=== PATIENT | male | born 1935 | race Caucasian/White ===

== ENCOUNTER → 2016-10-14 | Day surgery (SDC) | payer MEDICARE, BC ==
[~2016-10-14] MED LIST: ASPI81TA17 PO; BUPIVACAINE/EPINEPHRINE 0.5% PF 30 ML VIAL ONE; FLON0.053; IOHEXOL 180 MG/ML 20 ML VIAL (for RAD DIAG) ONE; KETOROLAC TROMETHAMINE 30 MG/ML (IVP) VIAL IV PUSH ONE; KRIL300C3 PO; LACTATED RINGER'S 1000 ML INJ 1,000 ML ONE; LIDOCAINE 1.5%/EPINEPHrine 1:200,000 PF SOLN 30 ML AMP ONE; MIDAZOLAM HCL 2 MG/2 ML VIAL ONE; PREV15CA PO; PROP20TA3 PO; PROPOFOL 200 MG/20 ML AMP IV ONE; SODIUM CHLORIDE 0.9% INJ 10 ML ONE; TAB-TAB PO; VITA400C70 PO; VITA500015 PO; ceFAZolin 2 GM PREMIX 50 ML ONE
--- NOTE | 2016-10-14 13:22 | TN ---
cc: ANEUDY CORONEL DATE OF SURGERY 10/14/2016 PREOPERATIVE DIAGNOSIS Compression fracture of L3, acute. POSTOPERATIVE DIAGNOSIS Compression fracture of L3, acute. PROCEDURE Kyphoplasty of L3 and placement of a bone cement spacer. SURGEON Aneudy Coronel MD ANESTHESIA TIVA ESTIMATED BLOOD LOSS Minimal INDICATION This is a 81-year-old white male who three to four weeks ago sustained a fracture after an injury to his spine. Investigative studies shows evidence of a compression fracture at the L3 level and an MRI scan confirms that is a recent fracture. The patient has had a previous kyphoplasty at L2 done years ago and did well after the treatment of that. The patient presents for surgical treatment. PROCEDURE The patient was brought to the operating room and given limited sedation, rolled to prone position on a radiolucent table. All pressure points were protected. The back was scrubbed with alcohol followed by Hibiclens, followed by Chloraprep and draped sterilely. Antibiotics were given within a one hour time window and a time-out was done. A single balloon approach was utilizing from the left side using the Kyphon system. A 20 mm Kyphon balloon was placed centrally within the vertebral body and inflated. On the back table, methyl methacrylate was mixed and after approximately 11 minutes was injected. We had minimal extravasation into the disk space between L3-L4 and filling was stopped. The cement was allowed to harden. The tubes were removed. Intraoperative x-rays were obtained. The wound was irrigated and anesthetized closed with 4-0 Vicryl followed by Dermabond. The patient was awakened and taken to the recovery room in satisfactory condition. MD TEETEE Holt/LEROY /1:10 PM /1:16 PM
== END | disposition home or self-care (01) ==
LOC: ESDC 11:05
PROVIDERS: ATTEND Orthopaedic Surgery Orthopaedic Surgery of the Spine
DX: S32.030A Wedge compression fracture of third lumbar vertebra, initial encounter for closed fracture (principal)
CPT/HCPCS: 01936; 22514; 72100; 76000; J0690; J1885; J2250; J3010; J7120; Q9965